=== PATIENT | male | born 1945 | race Caucasian/White ===

== ENCOUNTER 2024-09-27 07:21 | Day surgery (SDC) | payer MEDICARE, OTHER ==
[~2024-09-27] VITALS: Ht 172.7 cm; Wt 71.4 kg
[2024-09-27] VITALS (8 sets, daily range): BP systolic 95–136; BP diastolic 60–85
[~2024-09-27 07:21] MED LIST: ATOR40TA PO; Bupivacaine 0.5% HCl 5 MG/ML 30MLVIAL ONE; COREG12.5 M1 PO; ELIQUIS5 M2 PO; ENTRESTO 97 MG1 EACH PO; EPLE25 PO; ERYT.5TO BOTHEYES; JARDIANCE10 MG PO; MULTI-VITAMIN1 EAC2 PO; SILD50TA PO
[2024-09-27] MEDS ORDERED: Lactated Ringer's 1,000 ML IV SCH (07:40)
[2024-09-27] MEDS ORDERED: CeFAZolin Sodium 2,000 MG in NS 100 ML IV SCH (07:40)
--- NOTE | 2024-09-27 08:16 | NUR ---
Ambulatory in Day Surgery. History, Chart, Medications and Allergies reviewed before start of procedure. Lungs clear T/O to Auscultation. Patient confirms NPO status and agrees with scheduled surgery. Pre-Op teaching done. Pt verbalizes understanding. Patient States Post-Procedure ride home has been arranged. PT BELONGINGS PLACED UNDERNEATH GURNEY FOR SAFEKEEPING. PT RING GIVEN TO HIS FOR SAFEKEEPING.
[2024-09-27] MEDS ORDERED: Bupivacaine 0.5% HCl 5 MG/ML 30MLVIAL ONE (08:54)
[2024-09-27] MEDS ORDERED: FentaNYL Citrate 50 MCG/ML 2 ML Injection ONE (09:20)
[2024-09-27] MEDS ORDERED: Etomidate 2MG / ML 10ML Vial ONE (09:24)
[2024-09-27] MEDS ORDERED: Ondansetron HCl 2 MG / ML 2ML Vial ONE (09:26)
[2024-09-27] MEDS ORDERED: Dexamethasone Sod Phos 10 MG/ML 1ML VIAL ONE (09:26)
[2024-09-27] MEDS ORDERED: Rocuronium Bromide 10 MG/ML 5ML Injection IV ONE (10:24)
[2024-09-27] MEDS ORDERED: Sugammadex Sodium 200 MG/2ML SDV (100 MG/ML) ONE (10:24)
[2024-09-27] MEDS ORDERED: Lidocaine HCl 2% 20 ML MDV ONE (10:24)
[2024-09-27] MEDS ORDERED: Phenylephrine HCl 10mg/ml 1 ml Vial ONE (10:24)
[2024-09-27] MEDS ORDERED: HYDROcodone 5-APAP 325 TAB PO PRN (10:50)
--- NOTE | 2024-09-27 11:42 | NUR ---
Patient up to Ambulate independently. Gait steady. Discharge instructions reviewed with patient. Patient verbalizes understanding. Copy given to patient to take home, [facility]. Patient States Post-Procedure ride home has been arranged. Discharged via wheelchair to private car for ride home. PT TOLERATING PO. DRESSING C/D/I. PT VOIDED. PT REPORTS READY TO GO HOME. PT SENT WITH SCRIPT AND ICE PACK.
== END 2024-09-27 11:42 | disposition home or self-care (01) ==
LOC: ORSCMMR 07:21 → ORD 09:00 → ORSCMMR 11:42
PROVIDERS: Surgery
PROC: 0YU60JZ Supplement Left Inguinal Region with Synthetic Substitute, Open Approach (ICD-10-PCS; principal; 2024-09-27 09:00)
DX: K40.90 Unilateral inguinal hernia, without obstruction or gangrene, not specified as recurrent (principal); I25.2 Old myocardial infarction; Z79.899 Other long term (current) drug therapy
CPT/HCPCS: A9270; C1781; J0690; J1100; J2371; J2405; J3010; J7120